=== PATIENT | female | born 1955 | race Caucasian/White ===

== ENCOUNTER → 2016-04-20 | Outpatient (CLI) | payer OTHER ==
[~2016-04-20] MED LIST: ALPR0.25 PO; ASPI325T28 PO; CELE1CAP9 PO; FISH120012 PO; HYDR-2808 PO; METO25TAB PO; MULT1TAB10 PO; SIMV80TA PO; VITA100066 PO
--- NOTE | 2016-04-20 12:12 | REP ---
Chest two views HISTORY: Hypertension Comparison: 05/03/2008 The lungs are clear. The heart is normal in size. The pulmonary vasculature is normal in appearance. The patient is status post left shoulder arthroplasty. Degenerative changes present in the right shoulder. IMPRESSION: No acute disease. Signed by Hitesh Ghotra MD 04/20/2016 12:04 P
[2016-04-20 12:30] LABS: INR 0.89
[2016-04-20 12:37] LABS: ALBUMIN 4.2 GM/DL (3.2-5.2); ALKALINE PHOSPHATASE 84 U/L (45-117); ALT/SGPT 47 U/L (12-78); ANION GAP 8 MEQ/L (8-16); AST/SGOT 32 U/L (15-37); BILIRUBIN,TOTAL 0.5 MG/DL (0.2-1.0); BLOOD UREA NITROGEN 19 MG/DL (7-18); CALCIUM LEVEL 9.2 MG/DL (8.8-10.2); CARBON DIOXIDE LEVEL 32 MEQ/L (21-32); CHLORIDE LEVEL 103 MEQ/L (98-107); CREATININE FOR GFR 0.66 MG/DL (0.55-1.02); GLOMERULAR FILTRATION RATE > 60.0 (>45); GLUCOSE, FASTING 86 MG/DL (80-110); POTASSIUM SERUM 4.4 MEQ/L (3.5-5.1); SODIUM LEVEL 143 MEQ/L (136-145); TOTAL PROTEIN 7.2 GM/DL (6.4-8.2)
[2016-04-20 12:46] LABS: MEAN CORPUSCULAR HEMOGLOBIN 30.8 pg (27.0-33.0); MEAN CORPUSCULAR HGB CONC 33.4 g/dl (32.0-36.5); MEAN CORPUSCULAR VOLUME 92.4 fl (80.0-96.0); RED CELL DISTRIBUTION WIDTH 12.5 % (11.5-14.5); WHITE BLOOD COUNT 7.1 K/mm3 (4.0-10.0)
--- NOTE | 2016-04-20 17:06 | ECGEPIP ---
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
== END ==
LOC: M ADMPAT 09:57
PROVIDERS: ATTEND Orthopaedic Surgery
DX: Z01.818 Encounter for other preprocedural examination (principal); M19.011 Primary osteoarthritis, right shoulder

== ENCOUNTER 2016-05-03 07:12 | Inpatient (IN) | payer OTHER ==
[2016-04-20 10:35] VITALS: BP 149/82
--- NOTE | 2016-04-28 20:16 | HPE ---
DATE OF ADMISSION: 05/03/2016 PHYSICIAN: Dr. Cedillo HISTORY: Anne-Marie is a pleasant 61-year-old female presenting with severe right-sided shoulder pain, with glenohumeral osteoarthritis. She has failed to improve with conservative management. She has elected for a right total shoulder arthroplasty with Dr. Cedillo. Medical optimization with Dr. Burns and is not available for review today. CURRENT MEDICATIONS: - metoprolol 25 mg one-half tablet by mouth twice a day - Zocor 80 mg daily - Celebrex 200 mg daily - alprazolam 0.25 mg twice daily as needed for anxiety - Vicodin one tablet every six hours as needed for pain - fish oil 1000 mg twice a day - multivitamin daily - vitamin D3 ALLERGIES: LEVAQUIN and PHENOTHIAZINES. PAST MEDICAL HISTORY: 1. Hypertension. 2. Hyperlipidemia. 3. Heart disease. 4. Anxiety. 5. History of acute myocardial infarction. SURGICAL HISTORY: 1. Left partial shoulder replacement. 2. Tonsillectomy. 3. Dilatation and curettage (D C). 4. Total hysterectomy. 5. Sinus surgery. 6. Cardiac catheterization with stent placement. FAMILY HISTORY: Hypertension and heart disease in father. Hypertension in mother. SOCIAL HISTORY: Patient denies smoking and occasionally uses alcohol. REVIEW OF SYSTEMS: Patient denies any nausea, vomiting, fevers, chills, or diarrhea. She denies any chest pain, shortness of breath, lightheaded, dizziness, or headaches. She does continue to have right-sided shoulder pain with activities of daily living. EXAMINATION: Well-nourished, well-developed female in no apparent distress. Inspection of the right shoulder reveals no gross abnormalities. The skin is intact. The patient has quite a decrease in range of motion, especially in flexion and abduction. She is able to get to a little over 90 degrees in each. She does have normal strength of the right upper extremity. Her radial pulse on the right is palpable. Her capillary refill is brisk and her sensation is intact. NECK: Supple, without lymphadenopathy or jugular venous distention. HEART: Regular rate and rhythm. LUNGS: Clear to auscultation bilaterally. ABDOMEN: Soft, nontender to palpation. LABORATORY DATA: Chest x-ray shows no acute disease. EKG shows a normal sinus rhythm. Nasal and sinus cultures show normal estela. Urinalysis positive for red blood cells and amorphous sediment. Urine culture reveals no growth. Prothrombin time decreased at 12.1. INR 0.89. Erythrocyte sedimentation rate 13. Complete blood count: WBC 7.1, red blood cells 4.44, hemoglobin 13.7, hematocrit 41, platelet count 295. Comprehensive metabolic profile: Fasting glucose 86, BUN elevated at 19, creatinine for GFR 0.66. GFR greater than 60, sodium 143, potassium 4.4, chloride 103, carbon dioxide 32, anion gap 7, calcium 9.2, AST 32, ALT 47, alkaline phosphatase 84, total bilirubin 0.5, total protein 7.2, albumin 4.2, albumin/globulin ratio 1.40. ASSESSMENT: Right shoulder osteoarthritis. PLAN: Patient has consented for an elective right total shoulder arthroplasty with Dr. Cedillo. Pending medical optimization from Dr. Burns. SADI
[~2016-05-03] VITALS: Ht 157.5 cm; Wt 57.0 kg
[2016-05-03] VITALS (7 sets, daily range): BP systolic 128–141; BP diastolic 70–86
[2016-05-03] MEDS ORDERED: LR 1,000 ML IV SCH ×2 (07:30)
[2016-05-03] MEDS ORDERED: ACETAMINOPHEN 500 MG TAB PO ONE (08:00)
[2016-05-03] MEDS: VITAMIN D 1,000 INTERNATIONAL UNITS TABLET PO SCH (09:00)
[2016-05-03] MEDS: MULTIVITAMINS/MINERALS THERAP 1 TAB PO SCH (09:00)
[2016-05-03] MEDS ORDERED: fentaNYL 100 MCG/2 ML INJECTION (J3010) As Ordered ONE (09:34)
[2016-05-03] MEDS ORDERED: MIDAZOLAM INJ 2 MG/2 ML VIAL (J2250) As Ordered ONE ×2 (09:34→16:22)
[2016-05-03] MEDS ORDERED: ceFAZolin 1GM INJ (J0690) As Ordered ONE ×2 (09:40→12:05)
[2016-05-03] MEDS ORDERED: EPINEPHrine INJ 1 MG/ML 1ML VIAL/AMP As Ordered ONE ×2 (09:40→12:05)
[2016-05-03] MEDS ORDERED: VANCOMYCIN HCL 500 MG/10 ML VIAL (J3370) As Ordered ONE (12:59)
[2016-05-03] MEDS ORDERED: NEOSTIGMINE 1MG/ML 5 ML SYRINGE (J2710) As Ordered ONE (13:07)
[2016-05-03] MEDS ORDERED: PHENYLephrine HCL 500 MCG/5 ML (100MCG/ML) SYRINGE (J2370) As Ordered ONE (13:07)
[2016-05-03] MEDS ORDERED: ROCURONIUM BROMIDE 50 MG/5 ML VIAL As Ordered ONE (13:07)
[2016-05-03] MEDS ORDERED: GLYCOPYRROLATE INJ 0.2 MG/ML 2 ML VIAL As Ordered ONE (13:07)
[2016-05-03] MEDS ORDERED: PROPOFOL 200 MG/20 ML VIAL As Ordered ONE ×2 (13:07→14:46)
[2016-05-03] MEDS ORDERED: ONDANSETRON 4MG/2ML VIAL (J2405) As Ordered ONE (13:07)
[2016-05-03] MEDS ORDERED: LIDOCAINE 2% INJ 100 MG/5 ML SDV (FOR ANES.) As Ordered ONE (13:07)
[2016-05-03] MEDS ORDERED: dexameTHASONE 4 MG/ML 1ML VIAL (J1100) As Ordered ONE (13:07)
[2016-05-03] MEDS ORDERED: HYDROmorphone HCL 2 MG/ML 1ML VIAL (J1170) As Ordered ONE (13:28)
[2016-05-03] MEDS ORDERED: ePHEDrine SULFATE 25 MG/5 ML(5MG/ML) SYRINGE As Ordered ONE ×2 (13:32→14:23)
[2016-05-03] MEDS ORDERED: MORPHINE PCA 1MG/ML 100ML CADD As Ordered ONE (15:31)
[2016-05-03] MEDS ORDERED: ONDANSETRON 4MG/2ML VIAL (J2405) IV PRN ×2 (15:45)
[2016-05-03] MEDS: LR 1,000 ML IV SCH (15:45)
[2016-05-03] MEDS ORDERED: MORPHINE PCA 1MG/ML 100ML CADD IV PRN (15:45)
[2016-05-03] MEDS ORDERED: NALOXONE INJ 0.4 MG/1 ML VIAL (J2310) IV PRN (15:45)
[2016-05-03] MEDS ORDERED: fentaNYL 100 MCG/2 ML INJECTION (J3010) IV PRN (15:45)
[2016-05-03] MEDS ORDERED: FLEET ENEMA PR PRN (15:45)
[2016-05-03] MEDS ORDERED: NALBUPHINE HCL 10 MG/ML AMP (J2300) IV PRN (15:45)
[2016-05-03] MEDS ORDERED: PERCOCET 5MG/325MG TAB PO PRN (15:45)
[2016-05-03] MEDS ORDERED: ACETAMINOPHEN TAB 650MG DOSE (2X325MG) PO PRN (15:45)
[2016-05-03] MEDS ORDERED: EPIDURAL/PCA KEYS XX PRN (15:45)
[2016-05-03] MEDS ORDERED: HYDROmorphone HCL 1 MG/ML SYRINGE (J1170) IV PRN (15:45)
[2016-05-03] MEDS ORDERED: diphenhydrAMINE INJ 50MG/ML VIAL (J1200) IV PRN (15:45)
--- NOTE | 2016-05-03 16:13 | CR.PDOC ---
[facility] Consultation Consultation DATE OF CONSULTATION: 05/03/2016 PRIMARY CARE PHYSICIAN: Dr. Burns REFERRING PROVIDER: Dr. Panda ATTENDING PHYSICIAN: Dr. Damon REASON FOR CONSULTATION/CHIEF COMPLAINT: Management of chronic medical conditions - anxiety, hypertension, dyslipidemia, coronary artery disease with history of myocardial infarction and cardiac stent placement 2 HISTORY OF PRESENT ILLNESS: Ms. Ibarra is a 61-year-old female with past medical history significant for coronary artery disease with a history of myocardial infarction and 2 cardiac stent placements, hypertension, dyslipidemia, anxiety who presents for shoulder replacement secondary to persistent right-sided shoulder pain secondary to glenohumeral arthritis that has failed outpatient conservative management. She presents to [facility] for replacement with a [employer] right shoulder replacement. She is evaluated in the postanesthesia care unit and is still relatively unresponsive to questioning secondary to effects of anesthesia. ALLERGIES: Please see below. HOME MEDICATIONS: Please see below. PAST MEDICAL HISTORY: 1. Coronary artery disease 2. History of myocardial infarction with 2 cardiac stent placements 3. Dyslipidemia 4. Hypertension 5. Anxiety 6. Arthritis PAST SURGICAL HISTORY: 1. Cardiac stent January 2008 2. Hysterectomy 3. Left shoulder surgery 3 4. Nose/sinus surgery 5. Dilation and curettage 6. Tonsillectomy FAMILY HISTORY: Father: Hypertension, heart disease Mother: Hypertension SOCIAL HISTORY: Tobacco use: Denies ETOH: Occasional REVIEW OF SYSTEMS: Unobtainable at this time secondary to effects of anesthesia secondary to surgery PHYSICAL EXAMINATION: VITAL SIGNS: Please see below. GENERAL APPEARANCE: female who appears stated age resting on a stretcher in PACU with the effects of surgical anesthesia. Present HEENT: Atraumatic, normocephalic, pinnae appear without lesion or excoriation, nasal cannula present in nares RESPIRATORY: Clear to auscultation bilaterally, no appreciable wheeze, rhonchi, crackles, breathing appears unlabored CARDIOVASCULAR: Regular rate and rhythm, normal S1 and S2, no appreciable murmur , rub, click ABDOMEN: Soft, nontender, bowel sounds diminished throughout EXTREMITIES: Peripheral pulses appreciated bilaterally upper and lower extremities, no evidence of edema NEUROLOGICAL: Unable to assess at this time PSYCHIATRIC: Unable to assess at this time LABORATORY DATA: Please see below. ASSESSMENT/PLAN: This is a 61-year-old female with a medical history significant for coronary artery disease with history of myocardial infarction in 2 cardiac stent placements, hypertension, dyslipidemia, arthritis, and anxiety who presented to [facility] for a right shoulder replacement with Dr. Panda. Hospitalist service has been consulted to manage patient's chronic medical conditions. 1. Coronary artery disease: We'll hold patient's aspirin at this time. 2. Hypertension: We'll continue patient on Lopressor. 3. Dyslipidemia: We'll decrease patient's dose of simvastatin to 40 mg. 4. Anxiety: We'll continue patient on home dose of alprazolam. 5. Arthritis: We'll hold patient's Celebrex at this time. 6. Gastrointestinal prophylaxis: Senokot-S and Fleet enema as needed. 7. DVT prophylaxis: TEDs and sequentials as well as heparin 5000 units subcutaneous daily DISPOSITION: Reny to help assist in this patient's care. We'll continue patient' s home medications (with a decrease in her simvastatin to 40 mg). Will start daily bowel regimen. Pain control and diet deferred to orthopedics at this time. Obtain daily CBC and BMP. Thank you for this consultation. Vital Signs/I&O Vital Signs Date Time Temp Pulse Resp B/P Pulse Ox O2 Delivery O2 Flow Rate FiO2 05/03/16 07:36 99.1 71 20 160/81 97 Room Air Laboratory Data Labs 24H Laboratory Tests 2 05/03/16 15:16: [facility]side [facility] Allergies Coded Allergies: Quinolones (Verified Allergy, Unknown, 05/21/12) Chlorpromazine (Verified Adverse Reaction, Intermediate, SLURRED SPEECH, MOUTH PROBLEMS, 04/20/16) Fluphenazine (Verified Adverse Reaction, Intermediate, SLURRED SPEECH, MOUTH PROBLEMS, 04/20/16) Mesoridazine (Verified Adverse Reaction, Intermediate, SLURRED SPEECH, MOUTH PROBLEMS, 04/20/16) Perphenazine (Verified Adverse Reaction, Intermediate, SLURRED SPEECH, MOUTH PROBLEMS, 04/20/16) Prochlorperazine (Verified Adverse Reaction, Intermediate, SLURRED SPEECH, MOUTH PROBLEMS, 04/20/16) Promethazine (Verified Adverse Reaction, Intermediate, SLURRED SPEECH, MOUTH PROBLEMS, 04/20/16) Trifluoperazine (Verified Adverse Reaction, Intermediate, SLURRED SPEECH, MOUTH PROBLEMS, 04/20/16) Home Medications Scheduled (Celecoxib) 200 Mg Cap 200 MG PO DAILY (Reported) Alprazolam (Alprazolam) 0.25 Mg Tab 0.25 MG PO QHS (Reported) Aspirin (Aspirin) 325 Mg Tab 325 MG PO DAILY (Reported) Cholecalciferol (Vitamin D) 1,000 Unit Tab 1,000 UNIT PO DAILY (Reported) Fish Oil (Fish Oil) 1,200 Mg Cap 2,400 MG PO DAILY (Reported) Metoprolol Tartrate (Metoprolol Tartrate) 25 Mg Tab 12.5 MG PO BID (Reported) Multivitamins (Multivitamin Adults) 1 Tab Tab 1 TAB PO DAILY (Reported) Simvastatin - High Dose (Simvastatin) 80 Mg Tab 80 MG PO DAILY (Reported) Scheduled PRN Acetaminophen/Hydrocodone (Hydrocodone Bitartrate/AC 5-300 mg) 1 Tab Tab 1 TAB PO QHSP PRN PRN PAIN (Reported) ARABELLA SIFUENTESI May 03, 2016 16:13
[2016-05-03] MEDS ORDERED: fentaNYL 250 MCG/5 ML INJECTION (J3010) As Ordered ONE (16:21)
--- NOTE | 2016-05-03 19:03 | RO ---
DATE OF PROCEDURE: 05/03/2016 PREPROCEDURE DIAGNOSIS: Degenerative arthritis of the right shoulder. POSTPROCEDURE DIAGNOSIS: Degenerative arthritis of the right shoulder. PROCEDURE: Right total shoulder arthroplasty using a size 40 glenoid and a size 10 humeral stem with a 44 head with a +15 neck. Prosthesis was a Delta Xtend made by [employer]. SURGEON: Dr. Daija Cedillo SUPPLIER DIVERSITY DIRECTOR: Mr. Pedro Pablo Hermosillo ANESTHESIA: General endotracheal tube anesthesia. COMPLICATIONS: None. ESTIMATED BLOOD LOSS: 150 mL. SPECIMENS: Humeral head. DESCRIPTION OF PROCEDURE: Antibiotics given intravenously preoperatively and successful general endotracheal tube anesthesia was established. She was placed in a supine position at the edge of the table with a scapular bump. Head was secured. Right shoulder and arm area was then carefully prepped and draped in the usual sterile fashion. After the appropriate time out had been done I made a deltopectoral incision. Bovie cautery used to coagulate crossing vessels. The deltopectoral interval and cephalic vein were identified. The vein was reflected medially and preserved throughout the operation. The clavipectoral fascia was divided. The biceps tendon was very bulbus and enlarged and the biceps sheath was entered. The biceps tenotomized and then tenodesed to the pectoralis about 1 cm of the upper border of the pectoralis was divided. The three sister vessels were suture ligated medially. I was able to swing down and palpate the axillary nerve at this point over the anterior border of the subscapularis. I then excised the remaining portion of the biceps tendon up into the joint and opened the sheath out all the way up to the base of the coracoid and then I could identify into the bicipital groove and then used a small curved osteotome to make a lesser tuberosity osteotomy and then I reflected that medially as I externally rotated and dislocated the humeral head. Three Ethibond sutures were placed in the lesser tuberosity osteotomy piece for control of the subscapularis. There is very large inferior osteophyte which was debrided away with a small osteotome and Rongeurs and then we had excellent exposure of the humeral head. The guide was then placed and then by free hand technique I excised the proximal humerus just to the level of the rotator cuff and then used the cap to protect the surface and then began exposing the glenoid by using a small Fukuda retractor. I then excised the labrum in the anterior capsule taking great care that the axillary nerve was protected with a blunt Dagoberto inferiorly. The labral excision, 360 degrees was performed and then I released the anterior capsule off the anterior edge of the glenoid such that I could get a small elevator down the anterior glenoid neck region and then the Bankart type retractor which fit. This provided us very good exposure of the glenoid. I then placed the pin using the trial, first the 44 but it had a little bit of overlap anteriorly, thus I felt a size 40 would be most appropriate and the pin was placed down the center of the glenoid. I then reamed a 40 mm reamer and saved the reamings for a later use for the glenoid component. Center hole was then drilled and then a size 40 drill guide placed and the three drill holes were drilled. All holes were in good bone. There was no blowout of any of the drill holes. On the back table the cement was then mixed as I copiously pulsatile lavaged irrigated out the glenoid and then I placed the bone graft onto the fins of the center post of the glenoid implant and then after I trialed the implant to be sure that it all fit nicely I did notice that there was a small lip superiorly of bone and then I used the 44 reamer to just whittle down that small lip such that the glenoid would fit flush. We had excellent fit and there was no rock at all. After we copiously pulsatile lavaged irrigated out and drying the glenoid once again I placed cement in just the three peripheral holes impacted by digital palpation. Removed all remaining cement making sure there was none on the face of the glenoid and then impacted the real implant with excellent purchase. I then exposed the proximal humerus and then began reaming up to a size 10. I set the version at 30 degrees and it came out perfectly. Then I first placed the trial then I placed the trial broach. I trialed the first with a 40 but the 40 was a it small. I used a 44 eccentric head. The eccentricity was posterior. I first trialed the +15 and it seemed to fit nicely but I did trial the +18 but it felt a bit too snug and I decided on the +15. All of the trials were removed. We copiously irrigated out the humeral canal and then drilled four holes in the bicipital groove exiting out into the humeral canal and placed #2 Ethibond through these holes and then a real stem was placed such that the sutures were passed around the stem for lateral repair for the subscapularis. Once the implant was impacted, I placed the real 44 head with the eccentricity posterior. I copiously irrigated out the joint and then I placed 250 mg of vancomycin powder into the joint. I repaired the subscapularis by passing the sutures that were previously passed around the humerus, humeral stem, and then Abdullahi-Juan Carlos fashion on the medial side of the bony lesser tuberosity fragment. Once all four sutures had passed I tied them sequentially with excellent purchase and then I placed one Ethibond at the rotator interval superiorly. She had a very stable repair and there was no excess stress with external rotation all the way to 40 degrees. I irrigated it again and placed the rest of remaining 500 mg of vancomycin powder and closed the deep subdermal tissue with interrupted #2-0 PDS sutures. Skin was closed with kendra covered by adaptic dry sterile bulky dressing. She was placed into a sling and then awakened from general endotracheal anesthesia. She tolerated the procedure well. Transferred to the recovery room in stable condition. There were no intraoperative. Mr. Pedro Pablo Hermosillo was my outpatient physical therapist assistant and was critical to the success of this difficult procedure by helping to manipulate the arm, help with the appropriate soft-tissue retraction so I could perform the operation smoothly and efficiently, helped to close the wound, helped to pass sutures, helped to do the reduction maneuvers as necessary throughout the operation.
[2016-05-03] MEDS: SENOKOT S TAB PO SCH (20:13)
[2016-05-03] MEDS: METOPROLOL TART 12.5 MG PER 1/2 TAB PO SCH (20:14)
[2016-05-03] MEDS ORDERED: SIMVASTATIN 40 MG TAB PO SCH (21:00)
[2016-05-03] MEDS ORDERED: ALPRAZolam 0.25 MG TAB PO SCH (21:00)
[2016-05-04 02:00] VITALS: BP 125/68
[2016-05-04] MEDS: LR 1,000 ML IV SCH (04:24)
[2016-05-04 06:00] VITALS: BP 125/66
[2016-05-04] MEDS ORDERED: ONDANSETRON 4 MG TAB (S0181) PO PRN (06:45)
[2016-05-04] MEDS ORDERED: PERCOCET 5MG/325MG TAB PO PRN (06:45)
[2016-05-04] MEDS ORDERED: PERC5TAB6 PO (07:58)
[2016-05-04 08:11] LABS: MEAN CORPUSCULAR HEMOGLOBIN 30.4 pg (27.0-33.0); MEAN CORPUSCULAR VOLUME 92.2 fl (80.0-96.0); RED CELL DISTRIBUTION WIDTH 12.7 % (11.5-14.5); WHITE BLOOD COUNT 11.4 K/mm3 (4.0-10.0)
[2016-05-04 08:23] LABS: INR 1.04
[2016-05-04 08:25] LABS: ANION GAP 7 MEQ/L (8-16); BLOOD UREA NITROGEN 15 MG/DL (7-18); CALCIUM LEVEL 8.3 MG/DL (8.8-10.2); CARBON DIOXIDE LEVEL 31 MEQ/L (21-32); CHLORIDE LEVEL 100 MEQ/L (98-107); CREATININE FOR GFR 0.77 MG/DL (0.55-1.02); GLOMERULAR FILTRATION RATE > 60.0 (>45); GLUCOSE, FASTING 113 MG/DL (80-110); MAGNESIUM LEVEL 1.8 MG/DL (1.8-2.4); POTASSIUM SERUM 4.1 MEQ/L (3.5-5.1); SODIUM LEVEL 138 MEQ/L (136-145)
[2016-05-04 08:54] VITALS: BP 125/66
[2016-05-04] MEDS: MULTIVITAMINS/MINERALS THERAP 1 TAB PO SCH (08:54)
[2016-05-04] MEDS: METOPROLOL TART 12.5 MG PER 1/2 TAB PO SCH (08:54)
[2016-05-04] MEDS: SENOKOT S TAB PO SCH (08:54)
[2016-05-04] MEDS: VITAMIN D 1,000 INTERNATIONAL UNITS TABLET PO SCH (08:54)
[2016-05-04] MEDS ORDERED: HEPARIN SOD (PORCINE) 5000 UNITS/ML VIAL SQ SCH (09:00)
[2016-05-04] MEDS ORDERED: MIRALAX *UNIT DOSE* 17GM PACKET PO SCH (09:00)
[2016-05-04] MEDS ORDERED: MOM 30ML SUSPENSION UDC PO SCH (09:00)
[2016-05-04] MEDS: PERCOCET 5MG/325MG TAB PO PRN ×2 (10:19→16:02)
--- NOTE | 2016-05-04 10:53 | IPN ---
DATE: 05/04/2016 The patient is seen and examined at the bedside. Chart has been reviewed. No fever overnight. No chills. Pain is well controlled. The patient is right handed. Currently has no changes in her motor function. Power is maintained. No changes in sensation. Denies any numbness, tingling or weakness of her fingers and hand on the right. Status post shoulder surgery. Pain is rated at 3 out of 10 on current pain medications. Temperature 99, pulse 73, respiratory rate 18, blood pressure 125/66, 99% on 2 liters nasal cannula. GENERAL: The is awake, alert, oriented times three. Answering questions appropriately. No respiratory distress, cyanosis, or clubbing. The patient is status post right shoulder replacement by Dr. Akash Cedillo. HEART: S1, S2. Sinus rhythm. ABDOMEN: Soft, nontender, nondistended. Positive bowel sounds. EXTREMITIES: Right shoulder postoperative. No edema in bilateral lower extremities. SKIN: Warm and dry, well perfused and pink in color. Hand has normal hand candy molder. No change in sensation. IMPRESSION: 1. Right shoulder replacement. Per orthopedic surgery for activity level, deep vein thrombosis (DVT) prophylaxis and pain management. 2. History of coronary artery disease, myocardial infarction, two cardiac stents in the past, asymptomatic. 3. The patient's aspirin has been discontinued due to recent surgery. 4. Hypertension, controlled. Continue on home medications. 5. Anxiety, stable. 6. History of osteoarthritis, chronic. [facility]
--- NOTE | 2016-05-04 11:26 | REP ---
Clinical: Status post right shoulder replacement. Technique: AP and Y view of the right shoulder. Findings: The patient is status post right shoulder arthroplasty with essentially normal appearance and positioning. Overlying postsurgical changes appreciated. Impression: Status post right shoulder arthroplasty. Signed by Sujit Peterson MD 05/04/2016 11:18 A
--- NOTE | 2016-05-06 17:08 | DSES ---
DATE OF ADMISSION: 05/03/2016 DATE OF DISCHARGE: 05/04/2016 ADMITTING DIAGNOSIS: Degenerative arthritis of the right shoulder. OTHER DIAGNOSES: 1. Hypertension. 2. Hyperlipidemia. 3. Heart disease. 4. Anxiety. 5. History of acute myocardial infarction ([place]). DISCHARGE DIAGNOSIS: Degenerative arthritis of the right shoulder status post total shoulder arthroplasty. HISTORY OF PRESENT ILLNESS: Patient is a 61-year-old female with continuing right shoulder pain and stiffness. She did not respond to conservative management, so she consented for an elective right total shoulder arthroplasty with Dr. Cedillo. OPERATION PERFORMED: Right total shoulder arthroplasty. HOSPITAL COURSE: Patient underwent a right total shoulder arthroplasty under general endotracheal anesthesia. Surgery and hospital course were uneventful. Patient's pain was well-controlled on the date of discharge. She was discharged on oral pain medications and will resume her preoperative medications and diet. She will use her sling as directed. She will follow up in our office as recommended for wound check and staple removal. She is encouraged to contact our office sooner if there is any increased pain, drainage, bleeding, redness, numbness and tingling in the right upper extremity, fever greater than 101 degrees, or for any other concerns. Please see medical records for additional details.
== END 2016-05-04 16:06 | disposition home or self-care (01) | DRG 315 ==
LOC: M OR 07:12 → M MS5PR 16:35
PROVIDERS: ADMIT Orthopaedic Surgery; ATTEND Orthopaedic Surgery
PROC: 0RRJ0JZ Replacement of Right Shoulder Joint with Synthetic Substitute, Open Approach (ICD-10-PCS; principal; 2016-05-03 09:15)
DX: M19.011 Primary osteoarthritis, right shoulder (principal); I10 Essential (primary) hypertension; E78.5 Hyperlipidemia, unspecified; F41.9 Anxiety disorder, unspecified; I25.2 Old myocardial infarction; Z79.899 Other long term (current) drug therapy; Z88.8 Allergy status to other drugs, medicaments and biological substances; I25.10 Atherosclerotic heart disease of native coronary artery without angina pectoris